=== PATIENT | male | born 1960 | race Caucasian/White ===

== ENCOUNTER 2017-01-23 11:09 | Emergency (ER) | payer SELFPAY ==
[2017-01-23] MEDS ORDERED: IPRATROPIUM/ALBUTEROL 0.5-2.5 MG/3 ML AMPUL NEB ONE ×3 (11:46→11:47)
[2017-01-23] MEDS ORDERED: PREDNISONE 20 MG TABLET PO ONE (11:47)
--- NOTE | 2017-01-23 11:48 | ER Document Report ---
ED General - General Chief Complaint: Breathing Difficulty Stated Complaint: BREATHING ISSUES Time Seen by Provider: 01/23/17 11:30 Mode of Arrival: Ambulatory Information source: Patient Notes: 56-year-old smoker presents with complaints of one-week duration of productive cough yellow veras dark as well as clear over the past week. Patient denies any fevers or chills denies any nausea vomiting or diarrhea. Patient denies being on steroids recently. TRAVEL OUTSIDE OF THE [place] IN LAST 30 DAYS: No - HPI Onset: Last week Onset/Duration: Persistent Quality of pain: Achy Severity: Mild Pain Level: 1 Associated symptoms: Body/muscle aches, Productive cough, Shortness of breath Exacerbated by: Walking, Coughing Relieved by: Denies Similar symptoms previously: Yes Recently seen / treated by doctor: No - Related Data Allergies/Adverse Reactions: No Known Allergies Allergy (Verified 01/23/17 11:44) Past Medical History - Social History Smoking Status: Current Every Day Smoker Cigarette use (# per day): Yes Chew tobacco use (# tins/day): No Smoking Education Provided: Yes - Patient counselled regarding cessation for 4 minutes Frequency of alcohol use: Social Drug Abuse: None Family History: Reviewed & Not Pertinent Renal/ Medical History: Denies: Hx Peritoneal Dialysis - Immunizations Hx Diphtheria, Pertussis, Tetanus Vaccination: No Review of Systems - Review of Systems Notes: REVIEW OF SYSTEMS: CONSTITUTIONAL : Denies fever, chills, or sweats. Denies recent illness. EENT: Denies eye, ear, throat, or mouth pain or symptoms. Denies nasal or sinus congestion or discharge. Denies throat, tongue, or mouth swelling or difficulty swallowing. CARDIOVASCULAR: Denies chest pain. Denies palpitations or racing or irregular heart beat. Denies ankle edema. RESPIRATORY: Admits productive cough shortness of breath GASTROINTESTINAL: Denies abdominal pain or distention. Denies nausea, vomiting , or diarrhea. Denies blood in vomitus, stools, or per rectum. Denies black, tarry stools. Denies constipation. GENITOURINARY: Denies difficulty urinating, painful urination, burning, frequency, blood in urine, or discharge. MUSCULOSKELETAL: Denies back or neck pain or stiffness. Denies joint pain or swelling. SKIN: Denies rash, lesions or sores. HEMATOLOGIC : Denies easy bruising or bleeding. LYMPHATIC: Denies swollen, enlarged glands. NEUROLOGICAL: Denies confusion or altered mental status. Denies passing out or loss of consciousness. Denies dizziness or lightheadedness. Denies headache. Denies weakness or paralysis or loss of use of either side. Denies problems with gait or speech. Denies sensory loss, numbness, or tingling. Denies seizures. PSYCHIATRIC: Denies anxiety or stress. Denies depression, suicidal ideation, or homicidal ideation. ALL OTHER SYSTEMS REVIEWED AND NEGATIVE. Dictation was performed using [employer] voice recognition software PHYSICAL EXAMINATION: GENERAL: Well-appearing, well-nourished and in no acute distress. HEAD: Atraumatic, normocephalic. EYES: Pupils equal round and reactive to light, extraocular movements intact, sclera anicteric, conjunctiva are normal. ENT: Nares patent, oropharynx clear without exudates. Moist mucous membranes. NECK: Normal range of motion, supple without lymphadenopathy LUNGS: Decreased breath sounds all throughout HEART: Regular rate and rhythm without murmurs ABDOMEN: Soft, nontender, nondistended abdomen. No guarding, no rebound. No masses appreciated. Musculoskeletal: Normal range of motion, no pitting or edema. No cyanosis. NEUROLOGICAL: Cranial nerves grossly intact. Normal speech, normal gait. Normal sensory, motor exams PSYCH: Normal mood, normal affect. SKIN: Warm, Dry, normal turgor, no rashes or lesions noted. Physical Exam - Vital signs Vitals: Temp Pulse Resp BP Pulse Ox 98.6 F 79 20 147/95 H 96 01/23/17 11:14 01/23/17 11:14 01/23/17 11:14 01/23/17 11:14 01/23/17 11:14 Course - Re-evaluation Re-evalutation: 01/23/17 11:48 Patient has probable pneumonia given history of smoking productive cough shortness of breath of one-week duration. X-ray breathing treatments have been ordered 01/23/17 12:47 Chest x-ray notes no significant abnormality, patient states his breathing is improved significantly. I will discharge home with steroids antibiotics smoking cessation information and inhaler After performing a Medical Screening Examination, I estimate there is LOW risk for ACUTE CORONARY SYNDROME, RESPIRATORY FAILURE, SEPSIS OR MENINGITIS, thus I consider the discharge disposition reasonable. I have reevaluated this patient multiple times and no significant life threatening changes are noted. The patient and I have discussed the diagnosis and risks, and we agree with discharging home with close follow-up. We also discussed returning to the Emergency Department immediately if new or worsening symptoms occur. We have discussed the symptoms which are most concerning (e.g., changing or worsening pain, trouble swallowing or breathing, neck stiffness, fever) that necessitate immediate return. - Vital Signs Vital signs: Temp Pulse Resp BP Pulse Ox 98.6 F 79 20 147/95 H 96 01/23/17 11:14 01/23/17 11:14 01/23/17 11:14 01/23/17 11:14 01/23/17 11:14 - Diagnostic Test Radiology reviewed: Image reviewed, Reports reviewed - no acute abnormality Discharge - Discharge Clinical Impression: Encounter for smoking cessation counseling, SOB (shortness of breath) Pneumonia Qualifiers: Pneumonia type: due to unspecified organism Laterality: unspecified laterality Lung location: unspecified part of lung Qualified Code(s): J18.9 - Pneumonia, unspecified organism Condition: Stable Disposition: HOME, SELF-CARE Instructions: Pneumonia (OM) Additional Instructions: Follow up with your physician tomorrow for further care or return to the ED IMMEDIATELY if symptoms worsen or new concerns occur. If you cannot afford to follow up with your primary care physician a list of low cost clinics have been provided at the end of your discharge papers as well. Prescriptions: Doxycycline Hyclate 100 mg PO BID #20 capsule Prednisone [Deltasone 20 mg Tablet] 3 tab PO DAILY 5 Days tablet
--- NOTE | 2017-01-23 12:39 | RADIOLOGY REPORT (SQ) ---
EXAM DESCRIPTION: CHEST PA/LAT COMPLETED DATE/TIME: 01/23/2017 12:23 pm REASON FOR STUDY: productive cough COMPARISON: Two-view chest 01/06/2009 EXAM PARAMETERS: NUMBER OF VIEWS: two views TECHNIQUE: Digital Frontal and Lateral radiographic views of the chest acquired. RADIATION DOSE: NA LIMITATIONS: none FINDINGS: LUNGS AND PLEURA: No opacities, masses or pneumothorax. No pleural effusion. MEDIASTINUM AND HILAR STRUCTURES: No masses or contour abnormalities. HEART AND VASCULAR STRUCTURES: Heart normal size. No evidence for failure. BONES: No acute findings. HARDWARE: None in the chest. OTHER: No other significant finding. IMPRESSION: NO SIGNIFICANT RADIOGRAPHIC FINDING IN THE CHEST. TECHNICAL DOCUMENTATION: JOB ID: [id number] [employer]- All Rights Reserved
[2017-01-23 12:48] VITALS: BP 140/85
[2017-01-23] MEDS ORDERED: ALBUTEROL SULFATE HFA (90 MCG/PUFF) 8 GM MDI (1 MDI/ER DISP) IH PRN (12:49)
== END 2017-01-23 12:49 | disposition home or self-care (01) ==
LOC: ER 11:09
DX: J18.9 Pneumonia, unspecified organism (principal); R06.02 Shortness of breath; R05 Cough; F17.210 Nicotine dependence, cigarettes, uncomplicated
CPT/HCPCS: 99406; 94640 ×2; 99284; 71020; J7512; J3490; J7620

== ENCOUNTER 2017-01-31 10:20 | Emergency (ER) | payer SELFPAY ==
[2017-01-31 11:23] LABS: APPEARANCE,URINE CLEAR; BILIRUBIN,URINE NEGATIVE (NEGATIVE); GLUCOSE, URINE NEGATIVE (NEGATIVE); KETONES,URINE NEGATIVE (NEGATIVE); LEUKOCYTE ESTERASE,URINE NEGATIVE (NEGATIVE); NITRITE,URINE NEGATIVE (NEGATIVE); PROTEIN,URINE NEGATIVE (NEGATIVE); URINE SPECIFIC GRAVITY 1.009; UROBILINOGEN,URINE NEGATIVE mg/dL (<2.0)
[2017-01-31] MEDS ORDERED: ONDANSETRON 4 MG TAB.RAPDIS PO ONE (11:57)
[2017-01-31] MEDS ORDERED: KETOROLAC TROMETHAMINE 60 MG/2 ML SDV IM ONE (11:57)
--- NOTE | 2017-01-31 12:02 | ER Document Report ---
HPI - HPI Patient complains to provider of: Bilateral hip pain Onset: This morning Onset/Duration: Sudden Quality of pain: Throbbing Severity: Severe Pain Level: 5 Context: Patient states he woke up with bilateral hip pain this morning, right more than left. Denies injury. Denies lower back pain. Patient also denies loss of control of bowels or bladder, denies dysuria. No fever, no vomiting, or diarrhea. Patient states he did take a hydrocodone this morning without food, and was experiencing some nausea. Patient states this was an old prescription of hydrocodone that he had for previous pain condition. Patient states he was recently treated for pneumonia but did not get the antibiotics filled. He has been taken amoxicillin once a day that a relative had. States he could not afford the prescription that was given to him. Exacerbated by: Standing, Movement, Walking Relieved by: Denies Similar symptoms previously: Yes Recently seen / treated by doctor: No - ROS ROS below otherwise negative: Yes Systems Reviewed and Negative: Yes All other systems reviewed and negative - CONSTITUTIONAL Constitutional: DENIES: Fever - EENT Notes: Patient had pneumonia several weeks ago and still has intermittent cough. - NEURO Neurology: DENIES: Headache - CARDIOVASCULAR Cardiovascular: DENIES: Chest pain - RESPIRATORY Respiratory: REPORTS: Coughing. DENIES: Trouble Breathing - GASTROINTESTINAL Gastrointestinal: DENIES: Abdominal Pain - URINARY Urinary: DENIES: Dysuria, Urgency, Frequency - MUSCULOSKELETAL Musculoskeletal: REPORTS: Extremity pain - Bilateral hips - DERM Skin Color: Normal Skin Problems: None Past Medical History - General Information source: Patient - Social History Smoking Status: Current Every Day Smoker Cigarette use (# per day): Yes Frequency of alcohol use: Occasional Drug Abuse: None Lives with: Spouse/Significant other Family History: Reviewed & Not Pertinent Patient has suicidal ideation: No Patient has homicidal ideation: No Pulmonary Medical History: Reports: Hx Pneumonia Surgical Hx: Negative - Immunizations Hx Diphtheria, Pertussis, Tetanus Vaccination: No Vertical Provider Document - CONSTITUTIONAL Agree With Documented VS: Yes Exam Limitations: No Limitations General Appearance: Mild Distress - INFECTION CONTROL TRAVEL OUTSIDE OF THE [place] IN LAST 30 DAYS: No - HEENT HEENT: Atraumatic, Normal ENT Exam, Normocephalic - RESPIRATORY Respiratory: No Respiratory Distress, Wheezing - Expiratory - CARDIOVASCULAR Cardiovascular: Regular Rate, Regular Rhythm - GI/ABDOMEN Gastrointestinal: Abdomen Soft, Abdomen Non-Tender, Normal Bowel Sounds - MUSCULOSKELETAL/EXTREMETIES Musculoskeletal/Extremeties: Tender - Right hip on palpation and with internal and external rotation. Left hip nontender at this time minimal discomfort voiced with internal and external rotation. - NEURO Level of Consciousness: Awake, Alert, Appropriate Notes: No saddle anesthesia. - DERM Integumentary: Warm, Dry, No Rash Course - Re-evaluation Re-evalutation: 01/31/17 12:33 X-rays were negative for fracture, but did show degenerative disc changes in the lumbar spine. This was discussed with patient. No wheezing noted after albuterol treatment. Discharge - Discharge Clinical Impression: Bilateral hip pain, Bronchitis, Wheezing Condition: Good Disposition: HOME, SELF-CARE Additional Instructions: Antibiotics and steroids as prescribed. Start antibiotics tomorrow as you have already been given today's dose in the emergency room Inhaler 2 puffs every 4 hours as needed for cough and/or wheezing Push fluids Tylenol or ibuprofen as needed for pain Prescriptions may be cheaper at [facility], or [facility]. You must follow-up with your primary care doctor or [facility] for further evaluation Return as needed Prescriptions: Azithromycin [Zithromax 250 mg Tablet] 250 mg PO DAILY #4 tablet Hydrocodone/Acetaminophen [Iuka 5-325 mg Tablet] 1 tab PO PRN PRN #10 tablet PRN Reason: Prednisone 20 mg PO BID #10 tablet
[2017-01-31] MEDS ORDERED: AZITHROMYCIN 250 MG TABLET PO ONE (12:05)
[2017-01-31] MEDS ORDERED: ALBUTEROL SULFATE 0.083% NEB 2.5 MG/3 ML AMPUL NEB ONE (12:05)
--- NOTE | 2017-01-31 12:06 | RADIOLOGY REPORT (SQ) ---
EXAM DESCRIPTION: HIP BILATERAL COMPLETED DATE/TIME: 01/31/2017 11:38 am REASON FOR STUDY: pain COMPARISON: None. NUMBER OF VIEWS: Two views. TECHNIQUE: AP pelvis and additional frog-leg view of the right and left hip. LIMITATIONS: None. FINDINGS: MINERALIZATION: Normal. RIGHT HIP: No fracture or dislocation. No joint space narrowing. No significant osteophytes. LEFT HIP: No fracture or dislocation. No joint space narrowing. Tiny osteophyte lateral acetabular rim. PUBIS AND ISCHIUM: No fracture. PELVIS: No fracture. SACRUM: No fracture or dislocation. No worrisome bone lesions. LOWER LUMBAR SPINE: No fracture or dislocation. No worrisome bone lesions. No significant disc disea se. SOFT TISSUES: No findings. OTHER: No other significant finding. IMPRESSION: No acute findings TECHNICAL DOCUMENTATION: JOB ID: [id number] [employer]- All Rights Reserved
--- NOTE | 2017-01-31 12:07 | RADIOLOGY REPORT (SQ) ---
EXAM DESCRIPTION: L SPINE WHOLE COMPLETED DATE/TIME: 01/31/2017 11:38 am REASON FOR STUDY: pain COMPARISON: Bilateral hips same date NUMBER OF VIEWS: Five views including obliques. TECHNIQUE: AP, lateral, oblique, and sacral radiographic images acquired of the lumbar spine. LIMITATIONS: None. FINDINGS: MINERALIZATION: Normal. SEGMENTATION: Normal. No transitional anatomy. ALIGNMENT: Normal. VERTEBRAE: Maintained height. No fracture or worrisome bone lesion. DISCS: Mild disc space loss of height with anterior osteophyte formation at L1-2, L2-3, and L4-5. POSTERIOR ELEMENTS: Pedicles and facets are intact. No pars defect or posterior arch defects. Mild right facet arthropathy at L2-3 HARDWARE: None in the spine. PARASPINAL SOFT TISSUES: Normal. PELVIS: Intact as visualized. No fractures or worrisome bone lesions. SI joints intact. OTHER: No other significant finding. IMPRESSION: Mild degenerative disc changes as above TECHNICAL DOCUMENTATION: JOB ID: [id number]- All Rights Reserved
[2017-01-31] MEDS ORDERED: ALBUTEROL SULFATE HFA (90 MCG/PUFF) 8 GM MDI (1 MDI/ER DISP) IH ONE (12:30)
[2017-01-31 13:05] VITALS: BP 144/88
== END 2017-01-31 13:05 | disposition home or self-care (01) ==
LOC: ER 10:20
DX: M25.551 Pain in right hip (principal); M25.552 Pain in left hip; J40 Bronchitis, not specified as acute or chronic; R06.2 Wheezing; M47.9 Spondylosis, unspecified; R05 Cough; F17.210 Nicotine dependence, cigarettes, uncomplicated; Z87.01 Personal history of pneumonia (recurrent)
CPT/HCPCS: 94640; 99284; 96372; 81001; 72110; 73522; J1885; S0119; J3490

== ENCOUNTER → 2018-11-13 | Outpatient (CLI) | payer MEDICAID ==
[~2018-11-13] MED LIST: AMINOPHYLLINE INJ/PF 250 MG/10 ML SDV IV ONE; REGADENOSON INJ 0.4 MG/5 ML DISP.SYRIN IV ONE
--- NOTE | 2018-11-14 09:09 | RADIOLOGY REPORT ---
STRESS TEST REPORT [id number] RO[facility]#: DATE OF SERVICE: 11/13/2018 AGE: 58Y ORDER#: [id number] REFERRING MD: LAURA CHATMAN M.D. PROCEDURE PERFORMED: Rest/stress single isotope Cardiolite SPECT imaging with IV Lexiscan stress and gated SPECT imaging. INDICATION: For assessment of atypical chest pains. CLINICAL HISTORY: This is a 58-year-old male patient with no known coronary artery disease but has coronary risk factors of hypertension, use of tobacco, and family history of stroke and MIs, currently complaining of atypical chest pains in the left axilla and left lower lateral chest pains unrelated to exertion. REPORT The patient received IV Lexiscan 0.4 mg infused over 10 seconds. The resting heart rate was 72 bpm and increased to 96 bpm at end infusion. The resting blood pressure was 125/87 and remained the same at 126/92 at end infusion. The patient had symptoms of shortness of breath with wheezing, nausea, but no vomiting from the Lexiscan. He denies any increase in chest pains. He did have resting low-grade left lateral chest pains prior to the stress test. He was given 100 mg IV aminophylline 5 mins after lexiscan to reverse his symptoms. On examination, the patient had some wheezing and rhonchi but strongly smells of ETOH. No arrhythmias are seen. Resting 12-lead EKG showed NSR at 68 bpm with nonspecific T inversions in the AVL lead, ST elevations consistent with normal variant. At end infusion there were no ST changes, and heart rate was 96 bpm. Myocardial perfusion imaging was performed at rest 60 minutes following the injection of 11.58 mCi of Cardiolite. Ten seconds after the IV Lexiscan injection, he was injected with 33.4 mCi of Cardiolite and then flushed. Gated post-stress tomographic imaging was performed 60 minutes after stress. SUMMARY OF FINDINGS/IMPRESSION: The overall quality of the study is fair. There was some bowel uptake extracardiac superimposed on the inferior wall. The left ventricular cavity is noted to be normal in size on both the rest and stress studies. There is no evidence of abnormal transient ischemic dilatation of the left ventricle, the TID ratio was 1.10. SPECT images showed no reversible ischemia, but there was a small area of mild/moderate fixed perfusion defect in the basal inferoseptal wall and a larger area of severe fixed perfusion defect in the entire inferior wall, worse towards the apical inferior wall. Gated SPECT imaging showed reduced motion contraction in the inferoseptal wall and the inferior wall. The left ventricular ejection fraction was 62%. IMPRESSION: Myocardial perfusion imaging is abnormal. There is no reversible ischemia. There is a small area of [id number] fixed perfusion defect noted at the basal inferoseptal wall and a larger area of severe fixed perfusion defect in the inferior wall. There is reduced motion contraction in both these areas. Overall left ventricular systolic function was normal at 62%. No prior study for comparison. INTERPRETING PHYSICIAN: LAURA CHATMAN M.D. /: [id number] TT: [id number] ID: [id number] /: [id number] TD: [id number] JOB: [id number] cc:LAURA CHATMAN M.D. > MTDD
== END ==
LOC: RAD 06:53
PROVIDERS: ATTEND Internal Medicine Cardiovascular Disease
DX: R07.89 Other chest pain (principal); I10 Essential (primary) hypertension; Z72.0 Tobacco use; Z82.3 Family history of stroke; Z82.49 Family history of ischemic heart disease and other diseases of the circulatory system
CPT/HCPCS: 93017; 78452; A9500; J2785; J0280; Q9969

== ENCOUNTER → 2019-01-07 | Outpatient (CLI) | payer MEDICAID ==
[2019-01-07 15:51] LABS: ALBUMIN 4.6 g/dL (3.5-5.0); ALKALINE PHOSPHATASE 65 U/L (38-126); ANION GAP 11 (5-19); ASPARTATE AMINO TRANSFERASE 125 U/L (17-59); BILIRUBIN,DIRECT 0.2 mg/dL (0.0-0.4); BILIRUBIN,TOTAL 1.2 mg/dL (0.2-1.3); BLOOD UREA NITROGEN 4 mg/dL (7-20); CALCIUM 9.8 mg/dL (8.4-10.2); CARBON DIOXIDE 26 mmol/L (22-30); CHLORIDE 100 mmol/L (98-107); CHOLESTEROL 115.11 mg/dL (0-200); CREATINE KINASE 34 U/L (55-170); GLUCOSE 126 mg/dL (75-110); POTASSIUM 3.9 mmol/L (3.6-5.0); TOTAL PROTEIN 7.7 g/dL (6.3-8.2); TRIGLYCERIDES 97 mg/dL (<150)
[2019-01-07 16:09] LABS: DIRECT LDL 54 mg/dL (<100)
== END ==
LOC: LAB 15:04
PROVIDERS: ATTEND Physician Assistant
DX: I25.119 Atherosclerotic heart disease of native coronary artery with unspecified angina pectoris (principal); Z79.899 Other long term (current) drug therapy; R94.5 Abnormal results of liver function studies; R25.2 Cramp and spasm
CPT/HCPCS: 36415; 80048; 80061; 80076; 82550; 83735

== ENCOUNTER → 2019-01-14 | Outpatient (CLI) | payer MEDICAID | LOC: LAB 13:19 | PROVIDERS: ATTEND Physician Assistant | DX: R73.01 Impaired fasting glucose (principal) | CPT/HCPCS: 36415; 83036 ==

== ENCOUNTER → 2019-03-07 | Outpatient (CLI) | payer MEDICAID ==
[2019-03-07 16:19] LABS: ALBUMIN 4.3 g/dL (3.5-5.0); ALKALINE PHOSPHATASE 59 U/L (38-126); ANION GAP 13 (5-19); ASPARTATE AMINO TRANSFERASE 47 U/L (17-59); BILIRUBIN,DIRECT 0.2 mg/dL (0.0-0.4); BILIRUBIN,TOTAL 0.7 mg/dL (0.2-1.3); BLOOD UREA NITROGEN 6 mg/dL (7-20); CALCIUM 9.4 mg/dL (8.4-10.2); CARBON DIOXIDE 22 mmol/L (22-30); CHLORIDE 104 mmol/L (98-107); GLUCOSE 84 mg/dL (75-110); POTASSIUM 4.7 mmol/L (3.6-5.0); TOTAL PROTEIN 7.5 g/dL (6.3-8.2)
== END ==
LOC: LAB 15:33
PROVIDERS: ATTEND Internal Medicine Gastroenterology
DX: E83.42 Hypomagnesemia (principal); R94.5 Abnormal results of liver function studies; R07.9 Chest pain, unspecified; R73.01 Impaired fasting glucose; F10.10 Alcohol abuse, uncomplicated; Z79.899 Other long term (current) drug therapy
CPT/HCPCS: 36415; 80048; 80074; 80076; 82977; 83735; 86038; 86256

== ENCOUNTER → 2019-03-14 | Outpatient (CLI) | payer MEDICAID ==
--- NOTE | 2019-03-14 10:28 | RADIOLOGY REPORT (SQ) ---
EXAM DESCRIPTION: U/S ABDOMEN LIMITED W/O DOP COMPLETED DATE/TIME: 03/14/2019 10:19 am REASON FOR STUDY: ELEVATED LFT'S R94.5 ABNORMAL RESULTS OF LIVER FUNCTION STUDIES COMPARISON: None. TECHNIQUE: Dynamic and static grayscale images acquired of the abdomen and recorded on PACS. Additio nal selected color Doppler and spectral images recorded. LIMITATIONS: None. FINDINGS: PANCREAS: No masses. No peripancreatic edema or fluid collections. LIVER: Echotexture is coarse with increased echogenicity consistent with fatty infiltration. LIVER VASCULATURE: Normal directional flow of the main portal vein and hepatic veins. GALLBLADDER: No stones. Normal wall thickness. No pericholecystic fluid. ULTRASOUND-DETECTED LONG'S SIGN: Negative. INTRAHEPATIC DUCTS AND COMMON DUCT: CBD and intrahepatic ducts normal caliber. No filling defects. INFERIOR VENA CAVA: Patent. AORTA: No aneurysm. RIGHT KIDNEY: Normal size. Normal echogenicity. No solid or suspicious masses. No hydronephros is. No calcifications. PERITONEAL AND RIGHT PLEURAL SPACE: No ascites or effusions. OTHER: No other significant finding. IMPRESSION: FATTY INFILTRATION OF THE LIVER. OTHERWISE NORMAL RIGHT UPPER QUADRANT ULTRASOUND. TECHNICAL DOCUMENTATION: JOB ID: [id number] [employer]- All Rights Reserved Reading location - IP/workstation name: [email or web address]
== END ==
LOC: RAD 09:11
PROVIDERS: ATTEND Internal Medicine Gastroenterology
DX: K76.0 Fatty (change of) liver, not elsewhere classified (principal); R94.5 Abnormal results of liver function studies
CPT/HCPCS: 76705

== ENCOUNTER → 2019-05-15 | Outpatient (CLI) | payer MEDICAID ==
[2019-05-15 11:29] LABS: ALBUMIN 4.5 g/dL (3.5-5.0); ALKALINE PHOSPHATASE 72 U/L (38-126); ASPARTATE AMINO TRANSFERASE 100 U/L (17-59); BILIRUBIN,DIRECT 0.3 mg/dL (0.0-0.4); BILIRUBIN,TOTAL 0.7 mg/dL (0.2-1.3); TOTAL PROTEIN 7.7 g/dL (6.3-8.2); TRIGLYCERIDES 192 mg/dL (<150)
[2019-05-15 11:40] LABS: DIRECT LDL 105 mg/dL (<100)
[2019-05-15 11:42] LABS: VLDL CHOLESTEROL 38.4 mg/dL (10-31)
== END ==
LOC: LAB 10:37
PROVIDERS: ATTEND Physician Assistant
DX: E78.5 Hyperlipidemia, unspecified (principal); R94.5 Abnormal results of liver function studies; Z79.899 Other long term (current) drug therapy
CPT/HCPCS: 36415; 80061; 80076; 82977

== ENCOUNTER 2019-06-14 22:50 | Emergency (ER) | payer MEDICAID ==
--- NOTE | 2019-06-15 00:55 | RADIOLOGY REPORT (SQ) ---
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 COMPARISON: None. FINDINGS: Normal heart size with mild pulmonary edema pattern. No focal consolidation is identified. No pleural effusions or pneumothorax. IMPRESSION: No evidence of acute cardiopulmonary disease.
[2019-06-15] MEDS ORDERED: KETOROLAC TROMETHAMINE INJ/PF 30 MG/1 ML SDV IV ONE (01:01)
--- NOTE | 2019-06-15 01:08 | ER Document Report ---
ED General - General TRAVEL OUTSIDE OF THE [place] IN LAST 30 DAYS: No <HERNAN HAUSER - Last Filed: 06/15/19 02:24> <LETI CRUZ IV - Last Filed: 06/15/19 04:09> - General Chief Complaint: Fall Injury Stated Complaint: CHEST WALL/RIB PAIN Time Seen by Provider: 06/15/19 00:30 Primary Care Provider: MARY CHIU PA-C [Primary Care Provider] - Follow up as needed - [facility] Notes: Mr. Aaron is a 59-year-old male with a history of chronic alcoholism and heavy cigarette smoking who apparently drank 6 more beers tonight and according to bystanders fell several times in his yard. He may have had a syncopal episode. He was transported here by EMS. Patient says he does not recall the events but remembers being very sore over his right rib cage and family members called EMS for transport here. Patient's 2 sons are here. They indicate that he is chronically ill and on medical disability related to coronary disease. He is never been stented or had bypass surgery. He denies any central chest pain. I reviewed old records here and he has been in multiple times with alcohol- related issues and was seen several years ago for an unexplained syncopal episode and discharged home. Patient does not recall ever having a seizure in the past. Current medications reported by the patient include: Metoprolol, atorvastatin and magnesium supplement. Primary care provider is Mary Chiu. (HERNAN HAUSER) - Related Data Allergies/Adverse Reactions: No Known Allergies Allergy (Verified 01/31/17 10:25) Past Medical History - General Information source: Patient, Relative, Emergency Med Personnel, [facility] Records - Social History Smoking Status: Current Every Day Smoker Chew tobacco use (# tins/day): No Frequency of alcohol use: Heavy Drug Abuse: None Family History: Reviewed & Not Pertinent Patient has suicidal ideation: No Patient has homicidal ideation: No - Past Medical History Cardiac Medical History: Reports: Hx Coronary Artery Disease, Hx Hypertension Pulmonary Medical History: Reports: Hx COPD, Hx Pneumonia Endocrine Medical History: Reports: None Renal/ Medical History: Denies: Hx Peritoneal Dialysis GI Medical History: Reports: Hx Gastritis Surgical Hx: Negative - Immunizations Hx Diphtheria, Pertussis, Tetanus Vaccination: No <HERNAN HAUSER - Last Filed: 06/15/19 02:24> Review of Systems <HERNAN HAUSER - Last Filed: 06/15/19 02:24> - Review of Systems Notes: Constitutional: Negative for fever. HENT: Negative for sore throat. Eyes: Negative for visual changes. Cardiovascular: As per HPI. Respiratory: As per HPI. Gastrointestinal: Negative for abdominal pain, vomiting or diarrhea. Genitourinary: Negative for dysuria. Musculoskeletal: Negative for back pain. Skin: Negative for rash. Neurological: Negative for headaches, weakness or numbness. 10 point ROS negative except as marked above and in HPI. (HAUSER,HERNAN Short) Physical Exam <HERNAN HAUSER - Last Filed: 06/15/19 02:24> - Vital signs Vitals: Resp 06/14/19 23:00 - Notes Notes: GENERAL: Chronically ill-appearing middle-aged man with strong odor of tobacco and old alcohol. Appears moderately uncomfortable holding right rib area.. SKIN: Good turgor. Scattered ecchymoses of both forearms. HEAD: Normocephalic atraumatic. EYES: PERRLA. EOMI. Conjunctivae and sclerae clear. EARS: CANALS AND TMS CLEAR. NOSE: CLEAR. MOUTH: Moist mucosa. Poor dentition. No abrasions or lacerations of the tongue. No stridor or edema. No drooling. Throat: Clear. NECK: Supple. No masses or thyromegaly. No adenopathy. Carotids 2+ without bruits. No JVD. BACK: Symmetrical without tenderness. CHEST: Patient is moderately tender over lower rib cage on the right side along the anterior axillary line. No visible ecchymoses. No crepitus or step-off appreciated. No subcutaneous emphysema appreciated. Respirations unlabored. Few faint wheezes bilaterally. HEART: Regular rhythm. No murmur gallop or rub. ABDOMEN: Moderate tenderness on deep palpation right upper quadrant. Soft without masses, organomegaly or rebound. Bowel sounds normally active. No bruits. GENITALIA: Deferred. EXTREMITIES: No edema. No calf tenderness. Cap refill less than 1.5 seconds. Dorsalis pedis and posterior tibial pulses 3+ and symmetrical. NEUROLOGICAL: GCS 15. Alert and oriented x3. Mildly slurred but fluent speech. Cranial nerves II through XII intact. Sensorimotor and normal. Normal tone. PSYCHIATRIC: Appropriate affect. (HERNAN HAUSER) Course - Laboratory Result Diagrams: 06/15/19 01:15 06/15/19 01:15 - Diagnostic Test Radiology reviewed: Image reviewed - Chest x-ray reviewed by me portable study shows no obvious rib fracture and no hemothorax or pneumothorax. Moderate cardiomegaly. No vascular congestion. No infiltrates. No subcutaneous air is appreciated. <HERNAN HAUSER - Last Filed: 06/15/19 02:24> - Laboratory Result Diagrams: 06/15/19 01:15 06/15/19 01:15 <LETI CRUZ IV - Last Filed: 06/15/19 04:09> - Re-evaluation Re-evalutation: 06/15/19 01:13 I think this man probably passed out from drinking tonight and fell and injured his ribs. I cannot exclude the possibility of a seizure. X-ray was reviewed and I see no pneumothorax and no grossly displaced rib fractures but he certainly tender consistent with at least cortical fracture. He is also fairly tender in his right upper quadrant of the abdomen and because of circumstances I am going to scan his abdomen and pelvis to exclude intra-abdominal injury. Additionally I am going to get a noncontrast scan of his head he had. We will check alcohol and drug screen and routine labs and administer IV fluid and a dose of IV Toradol. 06/15/19 02:25 CBC is remarkable only for macrocytic indices consistent with chronic alcoholism.. Alcohol was 286. Urine drug screen remains pending. Chemistry profile remarkable for elevation of transaminase values consistent with chronic alcoholic hepatitis. CT scans of head abdomen and pelvis remain pending. Further care of the patient is turned over to Dr. Crzu at this time for follow-up of pending studies. Unless there are other obvious abnormalities would anticipate this man can go home with analgesics for rib injury if his sons are able to supervise him at home and he can follow-up with his primary care physician. He will be of course encouraged to abstain from use of tobacco and alcohol. (HERNAN HAUSER) 06/15/19 04:07 Results of ED MSE discussed with patient. All questions were answered prior to discharge. Emergency signs and symptoms, reasons to return to the ED discussed with patient. (LETI CRUZ IV) - Vital Signs Vital signs: Temp Pulse Resp BP Pulse Ox 11 L 126/95 H 97 06/15/19 02:01 06/15/19 02:00 06/15/19 03:02 - Laboratory Laboratory results interpreted by me: 06/15/19 06/15/19 01:15 01:15 MCV 104 H MCH 35.9 H Plt Count 133 L Lymph % (Auto) 56.7 H Seg Neutrophils % 34.0 L Chloride 110 H Carbon Dioxide 21 L BUN 5 L AST 86 H ALT 101 H - EKG Interpretation by Me Additional EKG results interpreted by me: 06/15/19 02:25 EKG from 0156 hrs. shows normal sinus rhythm with a rate of 71 and a normal QRS axis of 51 degrees with normal intervals and no acute ST or T wave changes. (HERNAN HAUSER) Discharge <HERNAN HAUSER - Last Filed: 06/15/19 02:24> <LETI CRUZ IV - Last Filed: 06/15/19 04:09> - Discharge Clinical Impression: Right rib injury, Alcohol abuse Condition: Good Disposition: HOME, SELF-CARE Additional Instructions: Return to the Emergency Department without delay if any worse. HOME CARE INSTRUCTIONS & INFORMATION: Thank you for choosing us for your medical needs. We hope you're satisfied with the care you received. After you leave, you must properly care for your problem and, at the same time, observe its progress. Any condition can change. Some illnesses can change rapidly over hours or days. If your condition worsens, return to the Emergency Department or see your physician promptly. ABOUT YOUR X-RAYS AND EKG'S: If you had an EKG or X-rays taken, they have been read by the Emergency Physician. The X-rays and EKG's will also be read by a Radiologist or Student Development Advisor within 24 hours. If discrepancies are noted, you will be notified by telephone. Please be certain the ED has a correct telephone number & address where you can be reached. Also, realize that some fractures or abnormalities do not show up on initial X-rays. If your symptoms continue, see your physician. ABOUT YOUR LABORATORY TEST: If you had laboratory tests, the results have been reviewed by the Emergency Physician. Some test results (for example cultures) may not be available for several days. You will be contacted if any test result shows you need additional treatment. Please be certain the ED has a correct telephone number and address where you can be reached. ABOUT YOUR MEDICATIONS: You will receive instructions on how to take your medicine on the prescription label you receive. Additional information may be provided by the Pharmacy. If you have questions afterwards, call the ED for clarification or further instructions. Some prescribed medications may cause drowsiness. Do not perform tasks such as driving a car or operating machinery without consulting your Pharmacist. If you feel you need a refill of pain medication, your condition will need re-evaluation. Please do not call for a refill of any medication. ABOUT YOUR SIGNATURE: Signature of this document acknowledges to followin. Understanding that you received emergency treatment and that you may be released before al medical problems are known or treated. Please be certain the ED has a correct phone number & address where you can be reached. 2. Acknowledgement that you will arrange for follow-up care as recommended. 3. Authorization for the Emergency Physician to provide information to your follow-up Physician in order to maximize your care. AT ANY TIME, IF YOUR SYMPTOMS CHANGE SIGNIFICANTLY OR WORSEN OR YOU DEVELOP NEW SYMPTOMS, RETURN TO THE EMERGENCY DEPARTMENT IMMEDIATELY FOR RE-EVALUATION. OUR GOAL IS TO PROVIDE EXCELLENT MEDICAL CARE! WE HOPE THAT WE HAVE MET YOUR EXPECTATIONS DURING YOUR EMERGENCY DEPARTMENT VISIT AND THAT YOU FEEL YOU HAVE RECEIVED EXCELLENT CARE! Prescriptions: Ibuprofen [Motrin 600 Mg Tablet] 600 mg PO TIDP PRN #15 tablet PRN Reason: Referrals: MARY CHIU PA-C [Primary Care Provider] - Follow up as needed
[2019-06-15 01:30] LABS: ABSOLUTE BASOPHILS # (AUTO) 0.1 10^3/uL (0.0-0.2); ABSOLUTE EOSINOPHILS # (AUTO) 0.1 10^3/uL (0.0-0.6); ABSOLUTE LYMPHOCYTES (AUTO) 4.2 10^3/uL (0.5-4.7); ABSOLUTE MONOCYTES (AUTO) 0.5 10^3/uL (0.1-1.4); ABSOLUTE NEUT (AUTO) 2.6 10^3/uL (1.7-8.2); BASOPHILS % (AUTO) 1.6 % (0-2); EOSINOPHILS % (AUTO) 1.7 % (0-6); HEMOGLOBIN 16.8 g/dL (13.5-17.0); LYMPHOCYTES % (AUTO) 56.7 % (13-45); MEAN CORPUSCULAR HEMOGLOBIN 35.9 pg (27.0-33.4); MEAN CORPUSCULAR HGB CONC 34.4 g/dL (32.0-36.0); MEAN CORPUSCULAR VOLUME 104 fl (80-97); RED CELL DISTRIBUTION WIDTH 13.3 % (11.5-14.0); TOTAL CELLS COUNTED % (AUTO) 100 %; WHITE BLOOD COUNT 7.5 10^3/uL (4.0-10.5)
[2019-06-15 01:33] LABS: APPEARANCE,URINE CLEAR; BILIRUBIN,URINE NEGATIVE (NEGATIVE); COLOR,URINE STRAW; GLUCOSE, URINE NEGATIVE (NEGATIVE); KETONES,URINE NEGATIVE (NEGATIVE); PROTEIN,URINE NEGATIVE (NEGATIVE); URINE SPECIFIC GRAVITY 1.003; UROBILINOGEN,URINE NEGATIVE mg/dL (<2.0)
[2019-06-15 01:40] LABS: INTERNATIONAL RATION (INR) 1.03; PROTHROMBIN TIME 13.5 SEC (11.4-15.4)
[2019-06-15 01:41] LABS: PARTIAL THROMBOPLASTIN TIME 28.4 SEC (23.5-35.8)
[2019-06-15 01:48] LABS: ALBUMIN 4.6 g/dL (3.5-5.0); ALCOHOL 286 mg/dL (NONE DETECTED); ALKALINE PHOSPHATASE 85 U/L (38-126); ANION GAP 13 (5-19); ASPARTATE AMINO TRANSFERASE 86 U/L (17-59); BILIRUBIN,TOTAL 0.5 mg/dL (0.2-1.3); BLOOD UREA NITROGEN 5 mg/dL (7-20); CALCIUM 8.6 mg/dL (8.4-10.2); CARBON DIOXIDE 21 mmol/L (22-30); CHLORIDE 110 mmol/L (98-107); GLUCOSE 90 mg/dL (75-110); POTASSIUM 4.4 mmol/L (3.6-5.0); TOTAL PROTEIN 7.8 g/dL (6.3-8.2)
[2019-06-15 01:53] LABS: PLATELET COUNT 133 10^3/uL (150-450)
[2019-06-15 02:17] LABS: URINE AMPHETAMINES SCREEN NEGATIVE; URINE BARBITURATES SCREEN NEGATIVE; URINE BENZODIAZEPINES SCREEN NEGATIVE; URINE METHADONE SCREEN NEGATIVE; URINE PHENCYCLIDINE SCREEN NEGATIVE
[2019-06-15] MEDS ORDERED: ONDANSETRON HCL INJ/PF 4 MG/2 ML SDV IV ONE (02:23)
[2019-06-15 02:43] LABS: URINE MARIJUANA (THC) SCREEN NEGATIVE
[2019-06-15 02:55] LABS: URINE COCAINE SCREEN UNCONFIRMED POSITIVE
--- NOTE | 2019-06-15 03:12 | RADIOLOGY REPORT (SQ) ---
CT head without contrast on 06/15/2019 at 2:49 AM CLINICAL INDICATION: Syncope, EtOH TECHNIQUE: Multiple axial images are obtained throughout the head without the administration of contrast. This exam was performed according to our departmental dose-optimization program, which includes automated exposure control, adjustment of the mA and/or kV according to patient size and/or use of iterative reconstruction technique. Total DLP is 963.96 mGy*cm. COMPARISON: None FINDINGS: There is no hydrocephalus. There is no CT evidence of acute infarct. There is no hemorrhage. There are no abnormal extra-axial fluid collections. There is no mass, mass effect or midline shift. The right maxillary sinus is hypoplastic. There is near complete opacification of the right maxillary sinus with some high density within the right maxillary sinus likely related to inspissated secretions. No acute bony abnormality is noted. IMPRESSION: 1. No acute intracranial abnormality. 2. Changes of likely chronic right maxillary sinusitis.
--- NOTE | 2019-06-15 03:32 | RADIOLOGY REPORT (SQ) ---
CLINICAL HISTORY: trauma / fall / ETOH COMPARISON: None. TECHNIQUE: CT ABDOMEN PELVIS WITH IV CONTRAST on 06/15/2019 1:00 AM [employer] This exam was performed according to our departmental dose-optimization program, which includes automated exposure control, adjustment of the mA and/or kV according to patient size and/or use of iterative reconstruction technique. FINDINGS: Lower lungs are clear. Abdomen: Liver is fatty in attenuation. There is no biliary dilatation. Gallbladder is normal in appearance. The pancreas and spleen are normal in appearance. The adrenal glands and kidneys are unremarkable. Abdominal aorta is normal in course and caliber without aneurysm. There is no free air. There is no retroperitoneal adenopathy. Pelvis: There is mild diverticulosis of the distal colon. Urinary bladder is unremarkable. There is no free fluid. Appendix is normal. Skeleton: There are no acute osseous findings. No suspicious bony lesions. IMPRESSION: No definite posttraumatic findings.
[2019-06-15 04:51] VITALS: BP 98/76
--- NOTE | 2019-06-15 07:43 | EKG REPORT ---
SEVERITY:- NORMAL ECG - SINUS RHYTHM : Confirmed by: Guanaco Vargas MD 15-Jun-2019 07:43:11
== END 2019-06-15 04:30 | disposition home or self-care (01) ==
LOC: ER 22:50
DX: S29.9XXA Unspecified injury of thorax, initial encounter (principal); S21.101A Unspecified open wound of right front wall of thorax without penetration into thoracic cavity, initial encounter; R10.11 Right upper quadrant pain; R55 Syncope and collapse; W19.XXXA Unspecified fall, initial encounter; F10.10 Alcohol abuse, uncomplicated; R07.89 Other chest pain; R07.81 Pleurodynia; F17.210 Nicotine dependence, cigarettes, uncomplicated; J44.9 Chronic obstructive pulmonary disease, unspecified
CPT/HCPCS: 93005; 99284; 96374; 96375; 36415; 80307 ×2; 83690; 83735; 85025; 85610; 85730; 80053; 81001; 84484; 71045; 70450; 74177; 93010; J1885; J2405

== ENCOUNTER → 2019-07-15 | Outpatient (CLI) | payer MEDICAID ==
[2019-07-15 14:15] LABS: ANION GAP 10 (5-19); BLOOD UREA NITROGEN 8 mg/dL (7-20); CALCIUM 9.3 mg/dL (8.4-10.2); CARBON DIOXIDE 25 mmol/L (22-30); CHLORIDE 101 mmol/L (98-107); GLUCOSE 91 mg/dL (75-110); POTASSIUM 4.9 mmol/L (3.6-5.0)
== END ==
LOC: OD 12:45
PROVIDERS: ATTEND Physician Assistant
DX: R73.01 Impaired fasting glucose (principal); R25.2 Cramp and spasm; Z79.899 Other long term (current) drug therapy
CPT/HCPCS: 36415; 80048; 83036

== ENCOUNTER → 2019-10-25 | Outpatient (CLI) | payer MEDICAID ==
[2019-10-25 12:29] LABS: ALBUMIN 4.6 g/dL (3.5-5.0); ALKALINE PHOSPHATASE 71 U/L (38-126); ASPARTATE AMINO TRANSFERASE 267 U/L (17-59); BILIRUBIN,DIRECT 0.1 mg/dL (0.0-0.4); BILIRUBIN,TOTAL 0.7 mg/dL (0.2-1.3); CHOLESTEROL 125.49 mg/dL (0-200); TOTAL PROTEIN 7.7 g/dL (6.3-8.2); TRIGLYCERIDES 65 mg/dL (<150)
[2019-10-25 12:40] LABS: DIRECT LDL 56 mg/dL (<100)
== END ==
LOC: OD 10:50
PROVIDERS: ATTEND Physician Assistant
DX: E78.5 Hyperlipidemia, unspecified (principal); Z79.899 Other long term (current) drug therapy
CPT/HCPCS: 36415; 80061; 80076